=== PATIENT | male | born 1990 | race Caucasian/White ===

== ENCOUNTER 2025-03-27 14:44 | Emergency (ER) | payer OTHER, SELFPAY ==
[2025-03-27 14:51] VITALS: BP 138/87
[2025-03-27 14:55] VITALS: BP 135/91
[2025-03-27 14:56] VITALS: BMI 29.6
[2025-03-27 14:58] VITALS: BP 135/91
[2025-03-27 15:09] VITALS: BP 136/88
[2025-03-27] MEDS: DILAUDID 0.5 MG IV (15:16)
[2025-03-27] MEDS: ZOFRAN 4 MG IV (15:16)
[2025-03-27] MEDS: ANCEF 5 IV (15:30)
[2025-03-27] MEDS: TORADOL 15 MG IV (17:07)
--- NOTE | 2025-03-27 17:48 | ED.SKININJ ---
Addendum entered and electronically signed by Gary Trejo DO 03/27/25 18:24:
Family is requesting a dose of antibiotic and Vicodin to take with them as they do not believe pharmacy will be open for them to obtain medications for nighttime dose. Will provide
Original Note:
HPI-Injury
General
Chief Complaint: Skin Surface Trauma
Time Seen by Provider: 03/27/25 15:07
Nursing documentation reviewed up to this point in time: agreed with
History of Present Illness-Injury
Initial Injury comments:
34-year-old male presents to the ER for evaluation of injury to his right forearm after he fell while standing on a stool. His arm struck a hurricane vase which shattered causing injury to his forearm. He came immediately to the ER for evaluation.
He reports feeling lightheaded and dizzy. He has no significant prior medical history. He is up-to-date on tetanus. He is right-handed. He denies paresthesias to the hand.
Past History
Past History
ED Past Medical History: Arrthythmia (Atrial fibrillation, svt)
ED Past Surgical History: Other (Cardiac ablation)
Social History
Tobacco: Smoker
Alcohol: Occasional
Drug: None
Review of Systems
Review of Systems
Allergies reviewed?: Yes
Phy Exam
Physical Exam
Physical Exam:
Patient is awake, alert, pale, diaphoretic, appears uncomfortable, right forearm exam reveals brisk cap refill present to the digits of the right hand with equal insole cementer strength to all of the digits without any weakness, intact sensation to light
touch, there is a 3-1/2 cm full-thickness laceration with exposure of subcu fat present along the medial mid forearm, there is a deeper 4-1/2 cm laceration on the more proximal medial forearm which extends through the muscle body of the flexor
tendons with ongoing venous bleeding controlled with pressure, there is a 2 cm partial-thickness laceration on the more distal forearm along with a 1 cm superficial skin avulsion present on the distal medial forearm, GCS is 15
Course
Orders/Labs/Results
Orders:
Orders
03/27/25 15:13
HYDROmorphone [Dilaudid] 0.5 mg IV NOW STA
Ondansetron Injectable [Zofran] 4 mg IV NOW STA
03/27/25 15:14
HYDROmorphone [Dilaudid] 0.5 mg .ROUTE .STK-MED ONE
Ondansetron Injectable [Zofran] 4 mg .ROUTE .STK-MED ONE
03/27/25 15:19
CeFAZolin 1 GRAM [Ancef] 1 gram in 5 ml IV NOW
03/27/25 15:57
Forearm, Right 2 View [CR Forearm - Right 2 View] Urgent
Comment: lac from glass, r/o retained FB
Reason For Exam: trauma
03/27/25 15:58
Ketorolac [Toradol] 15 mg IV NOW STA
03/27/25 17:29
Splints/Slings/Crut- Treatment ONCE
Location: Right
Type of Splint: Short Arm
Comment: ple
Vital Signs
Initial and Last Documented VS:
Initial Vital Signs
Pulse Resp BP Pulse Ox
91 17 138/87 99
03/27/25 14:51 03/27/25 14:51 03/27/25 14:51 03/27/25 14:51
Last Documented Vital Signs
Temp Pulse Resp BP Pulse Ox
98.6 F 95 28 135/91 99
03/27/25 14:58 03/27/25 14:58 03/27/25 14:58 03/27/25 14:58 03/27/25 14:58
Procedures
Laceration Closure
Right Lower Arm:
Status of Wound: clean
Size of Wound in cm: 8
Description of Wound Edges: sharp
Preparation: cleaned with saline
Anesthesia: 1% Lidocaine with epi (16 mL)
Revision/Debridement: routine- no revision
Wound exploration: explored to base- no FB
Type of Closure: layered closure (6 sutures of 3-0 Vicryl placed in muscle body/fascia of 4.5 cm laceration. Skin was closed with 3 vertical mattress sutures and 8 simple sutures of 4-0 nylon) and running stitch (More distal more superficial
3.5 centimeter laceration closed with 10 running sutures of 4-0 nylon)
Skin Closure Material: 4-0 nylon
Number of sutures: 21
MDM/Problems Addressed
Differential Diagnosis Includes:
Differential diagnosis to consider but not limited to muscle injury, nerve injury, along with other etiologies considered
*Radiology
Radiology exam reviewed: preliminary read by ED provider (I independently viewed and interpreted x-ray of the forearm showing no retained foreign body, air in the soft tissues consistent with recent epilation)
*Pulse Oximetry
SaO2: 99
Oxygen Mode of Delivery: Room air
Patient hypoxic: no
*Critical Care Note
Total Time (30-74mins, 75-104mins- exclusive of procedures): Not Applicable
Update Note
Update Note:
I was called immediately into the room on patient arrival given his overall appearance. Patient was placed in slight Trendelenburg and on the monitor. He had good blood pressure and normal heart rate. I discussed with patient and feeling members
present at bedside vasovagal reaction related to the injury. Bleeding was controlled with direct pressure. Wound was anesthetized cleansed and closed by myself, I did not encounter any foreign bodies during repair procedure. I discussed with them
use of antibiotics and need for follow-up with orthopedic surgeon for reevaluation given extent of muscle injury, although patient does not have any apparent weakness or loss of sensation on exam at current. Patient placed in splint for support.
They expressed understanding of medication usage at home along with strict return precautions. He is provided with a small prescription of hydrocodone in case of severe pain uncontrolled with [id number] Tylenol and prescription ibuprofen.
They had no questions at the current time.
ED Attending Note
-
Portions of this chart may have been created with voice recognition software.� Occasional wrong word or��sound alike� substitutions may have occurred due to the inherent limitations of voice recognition software.
Discharge Plan
Departure
Patient Disposition: Home (Routine Discharge)
Date of Disposition: 03/27/25
Time of Disposition: 17:39
Patient with high blood pressure during this ER visit?: No
Discharge Problem:
Laceration of multiple sites of arm, Injury of muscle at forearm level
Instructions: Laceration Repair With Stitches (DC)
Prescriptions:
New
ibuprofen 600 mg tablet
600 mg PO TID PRN (Reason: Pain) Qty: 20 0RF
cephalexin 250 mg capsule
250 mg PO QID Qty: 28 0RF
hydrocodone-acetaminophen 5-325 mg tablet
1 tab PO Q6H PRN (Reason: Pain) Qty: 7 0RF
No Action
Multiple Vitamins
1 tab PO DAILY
atorvastatin [Lipitor] 10 mg Tablet
10 mg PO DAILY
Referrals:
Jhonathan Campbell DO [Family Provider, Family Practice]
Neeta Calderon DO [Active, Orthopedics] - Next open appointment
Discharge Problem: Injury of muscle at forearm level; Laceration of multiple sites of arm
Activity Restrictions/Additional Instructions:
Wear splint until seen in follow-up with Dr. Calderon. Contact her office tomorrow to schedule appointment for reevaluation and further care. Use ibuprofen as prescribed 3 times daily for the next 3 days then as needed for pain. For any severe
pain uncontrolled with ibuprofen you may try extra strength Tylenol as available [id number]. Use hydrocodone as prescribed for any severe pain uncontrolled with ibuprofen and Tylenol. When you are not walking, please elevate your hand.
Return to the ER for any concerns including but not limited to fever, drainage, worsening pain.
Interventions
Interventions:
*Risk Screen - Suicide Last Done: 03/27/25 14:53
*General Assessment Last Done: 03/27/25 14:53
*Neglect/Abuse Screening Last Done: 03/27/25 14:53
*ED- Fall Risk Assessment Last Done: 03/27/25 14:58
*ED COVID-19 Vaccine History Last Done: 03/27/25 14:53
*ED Influenza Vaccine History Last Done: 03/27/25 14:53
ED-Skin Assessment Last Done: 03/27/25 14:58
Discharge Date and Time
Print Language: YI
[2025-03-27] MEDS: KEFLEX 250 MG PO (18:33)
[2025-03-27] MEDS: NORCO 5/325 1 TABLET PO (18:33)
== END 2025-03-27 18:35 | disposition home or self-care (01) ==
LOC: EMR 14:44
PROVIDERS: EMERGENCY PHYSICIAN Emergency Medicine; FAMILY PHYSICIAN Family Medicine
DX: S51.811A Laceration without foreign body of right forearm, initial encounter (principal); W18.09XA Striking against other object with subsequent fall, initial encounter; F17.200 Nicotine dependence, unspecified, uncomplicated
CPT/HCPCS: 12034; 96374; 96375; 99284; 73090